=== PATIENT | female | born 1950 | race Caucasian/White ===

== ENCOUNTER → 2017-02-13 | Outpatient (CLI) | payer BC ==
[~2017-02-13] MED LIST: ASCAUNK PO; HYDUNK PO; MULTTAB58 PO; vit D PO
--- NOTE | 2017-02-13 12:09 | DIAGNOSTIC IMAGING REPORT ---
NUCLEAR GASTRIC EMPTYING STUDY HISTORY: Abdominal bloating. COMPARISON: None. TECHNIQUE: Following the oral administration of 1.1 mCi of technetium 99m sulfur colloid in egg sandwich and 8 ounces of water, static abdominal images are obtained anteriorly and posteriorly at 0 minutes, 1 hour, 2 hour, and 4 hour time intervals. Gastric emptying was calculated utilizing the geometric mean method. FINDINGS: There is approximately 72% activity remaining at the 1 hour time interval (normal is less than 90%), 46% remaining at the 2 hour time interval (normal is less than 60%), and 1% activity remaining at the 4 hour time interval (normal is less than 10%). IMPRESSION: No evidence for delayed gastric emptying. Electronically signed by: Anuel Sanchez M.D. 02/13/2017 12:07 PM Dictated Date/Time: 02/13/2017 12:07 PM
== END | disposition home or self-care (01) ==
LOC: C.NUCL 07:39
PROVIDERS: ATTEND Internal Medicine Gastroenterology
DX: R14.0 Abdominal distension (gaseous) (principal)

== ENCOUNTER 2025-03-18 11:10 | Observation (INO) ==
--- NOTE | 2025-03-18 11:21 | Emergency Department Note ---
Impression & Plan Acute metabolic encephalopathy due to hypoglycemia, Hypokalemia, Mediastinal mass, Frontal mass of brain ED Provider Note NAME: JOANNE PALACIOS AGE: 74 SEX: F : 1950 ARRIVES VIA: Ambulance INFORMANT: Patient, ED PROVIDER(S): Eran Luo MD CHIEF COMPLAINT: Weakness, diaphoresis, confusion MEDICAL DECISION MAKING: Patient presents due to concern for weakness. IV was established and blood work was obtained. Patient did have a screening CT of the head completed along with a chest x-ray. Patient's blood work was notable for a blood sugar in the 50s. Patient was ordered dextrose IV. Patient with a normal white count hemoglobin of 11.2 with a normal platelet count kidney function unremarkable blood sugar in the lab was noted to be 49. Patient's lactate of 1.[address] head did show concern for brain mass. This may have been similar to what had already been seen but no prior for comparison. Potassium 2.8. The patient was ordered K riders as the patient's magnesium was normal. Patient's repeat BSG was in the 150s. Upon reassessment the patient initially did have slow deliberate speech but this seems to be much improved. I did speak with Dr. Pruitt at [facility] neurosurgery with regard to the patient's brain mass. He did state that she did not require transfer based on her current symptoms and the associated hypoglycemia. The patient does not currently complain of any visual field deficits at this time. I did speak the on-call hospital service BRI Rogel under Dr. Garcia and the patient was admitted to the medicine service. Critical Care: I have personally spent 39 minutes of critical care time in direct management of this patient. This includes bedside care, interpretation of diagnostic studies, and testing, discussion with consultants, patient, and family members, and other require inpatient management activities. This 39 minutes is in excess of all separately billable procedures. Discussion w/ other healthcare providers: Dr. Pruitt neurosurgery [facility] BIR Nath and Dr. Garcia [facility] inpatient service Prior /Outside records reviewed: None Differential diagnosis: Infection, dehydration, metabolic abnormality, hypo/hyperglycemia, electrolyte imbalance, anemia, UTI, pneumonia, thyroid dysfunction among others were considered. Diagnostics, as interpreted by me: ECG: Normal sinus rhythm, rate of 73, normal intervals, normal axis no obvious ST elevations. Cardiac monitoring: An order was placed for continuous cardiac monitoring. The monitor shows a rate of 75 with sinus rhythm. Patient was placed on pulse oximetry Medical decision rules: None Imaging studies: I informally interpreted the patient's CT head that showed brain mass with formal report to follow. HPI: Patient presents due to concern for altered mental status. The patient reportedly was very diaphoretic and reportedly confused EMS arrived and the patient seem to be answering questions appropriately but was diaphoretic and had complained of some epigastric pain. Reportedly does have a history of a mediastinal mass. I did speak with the patient's family member who arrived later to provide some additional history and reported that the patient was noted to have a meningioma and a PET scan that was completed within the last month. The patient was to have a follow-up with neuro Optho today at [facility] but her symptoms preceded this and thus presented here for evaluation. Patient currently denies any head neck chest back or abdominal pain. Patient denies any numbness tingling or focal weakness. BSG per EMS prior to arrival was in the 130s. She reportedly does take insulin. No reported cough. PAST MEDICAL HISTORY: See Below PAST SURGICAL HISTORY: See Below SOCIAL HISTORY: See Below HOME MEDICATIONS: See Below ALLERGIES: See Below VITALS: See Below PHYSICAL EXAMINATION: GENERAL: NAD, non-toxic. EYE EXAM: Normal conjunctiva. PERRL, no anisocoria and EOM's grossly intact w/o pain. OROPHARYNX: Moist mucus membranes, grossly normal dentition. NECK: Trachea midline, no stridor. Patient denies any history of seizures and no tongue biting or cough. LUNGS: Clear to auscultation. Normal chest wall mechanics. HEART: NSR, no MRG. ABDOMEN: Abdomen soft, non-tender, no masses, no rebound or guarding. BACK: No CVA TTP. SKIN: No rashes and no bruising. UPPER EXTREMITIES: Upper extremities are grossly normal. LOWER EXTREMITIES: Grossly normal, no edema. NEURO EXAM: Awake and alert, follows commands, no obvious facial asymmetry, slow deliberate speech but no obvious dysarthria moves all 4 extremities. Good jyxkoo-tb-gist. Unable to keep both legs up off the bed for greater than 5 seconds. No obvious sensory deficits. Past Med/Surg History Problem List (Updated 03/18/25 @ 17:18 by BRI Marcus) Frontal mass of brain Iron deficiency anemia Hypoglycemia Mediastinal mass Acute hyperglycemia (Acute) Colitis (Acute) Weight loss (Acute) Diarrhea (Acute) Hypomagnesemia (Acute) Hypokalemia (Acute) Hypoxia (Acute) Encounter for pre-operative examination Factor VIII deficiency Encounter for pre-operative examination Medical History History of anesthesia reaction pt reports being told she has a small airway opening History of gastric polyp History of colon polyps x1 non cancerous Von Willebrands disease PER PT: BEFORE PROCEDURES REQUIRED TO TAKE A MED (NOT SURE DETAILS)/PT PLANS TO INQUIRE WITH GI DOC Sarcoidosis Diabetes Nausea and vomiting after administration of anesthetic agent Osteoarthritis Hypertension Sleep apnea cpap Asthma controlled/used rescue inhaler in the hot summer Surgical History History of esophagogastroduodenoscopy (EGD) History of total abdominal hysterectomy and bilateral salpingo-oophorectomy History of bunionectomy of left great toe History of bunionectomy of right great toe History of cholecystectomy History of appendectomy History of removal of cyst on abdomen History of colonoscopy History of wisdom tooth extraction History of tonsillectomy Family History Uncle Family history of diabetes mellitus Mother Family history of diabetes mellitus Sister Family history of diabetes mellitus Other Family history of esophageal cancer Social History Smoking Status: Never smoker Second Hand Exposure: Yes (parents smoked); Do You Dip or Chew Tobacco: No; Hx Alcohol Use: No Hx Substance Use: No Preferred Language: Qatari Communication Ability: Effective Surveyor'S Assistant Required: No Beliefs That Will Affect Care: None Current Living Situation: Alone Current Living Situation Comment: lives at home alone Other Information That Helps Us Care for You: No Feels Safe at Home: Yes Safety Concerns: Feels Safe At This Time Assistive Devices: None Allergies Allergies Allergy/AdvReac Type Severity Reaction Status Date / Time Penicillins Allergy Unknown rash Verified 12/16/24 14:30 Sulfa (Sulfonamide Allergy Unknown sulfa - Verified 12/16/24 14:30 Antibiotics) rash Home Meds Home Medications Medication Instructions Recorded Confirmed albuterol sulfate 90 mcg/actuation 2 puff inhalation Q4H PRN Wheezing 07/07/18 03/18/25 aerosol inhaler (Ventolin HFA) diclofenac sodium 1 % topical gel 2 g topical QID PRN arthritic pain 07/07/18 03/18/25 losartan 25 mg tablet 25 mg PO QAM 07/07/18 03/18/25 fluticasone propionate 110 2 puff inhalation BID 12/14/24 03/18/25 mcg/actuation HFA aerosol inhaler fluticasone propionate 50 2 spray intranasal DAILY 12/14/24 03/18/25 mcg/actuation nasal spray,suspension ferrous sulfate 325 mg (65 mg 325 mg PO UD 03/18/25 03/18/25 iron) tablet,delayed release potassium chloride 20 mEq 20 meq PO DAILY 03/18/25 03/18/25 tablet,extended release Previous Rx's Medication Instructions Recorded insulin glargine 100 unit/mL 40 unit (0.4 mL) SC DAILY #0 mL 03/19/25 subcutaneous solution (Lantus U-100 Insulin) Results & Data (ED) Vital Signs Vital Signs - 24 hr 03/18/25 11:17 Pulse Rate 78 Home Medications Current Medication List: was personally reviewed by me Laboratory Data Attestation: I reviewed the patient's lab results. 03/19/25 05:19 03/19/25 05:19 Lab Results 03/18/25 03/18/25 03/18/25 Range/Units 11:47 11:48 11:56 WBC 9.79 (4.8-10.8) K/ul RBC 4.35 (4.20-5.40) M/uL Hgb 11.2 L (12.0-16.0) g/dl POC Hgb 11.6 L (12.0-16.0) g/dl Hct 35.6 L (37.0-47.0) % POC Hct 34 L (37-47) % MCV 81.8 (80.0-100.0) fL MCH 25.7 (25.0-34.0) pg MCHC 31.5 L (32.0-36.0) g/dL RDW Std Deviation 50.8 H (36.4-46.3) fL RDW Coeff of Liss 17.0 H (11.5-14.5) % Plt Count 382 (130-400) K/uL MPV 8.8 L (9.4-12.4) fL Immature Gran % (Auto) 0.5 % Neut % (Auto) 63.6 % Lymph % (Auto) 25.0 % Giles % (Auto) 9.2 % Eos % (Auto) 0.9 % Baso % (Auto) 0.8 % Neut # (Auto) 6.22 (1.40-6.50) K/uL Lymph # (Auto) 2.45 (1.20-3.40) K/uL Giles # (Auto) 0.90 H (0.11-0.59) K/uL Eos # (Auto) 0.09 (0.00-0.50) K/uL Baso # (Auto) 0.08 (0.00-0.20) K/uL Immature Gran # (Auto) 0.05 (0.01-0.20) K/uL POC Sodium 142 (135-144) mmol/L Sodium 141 (136-145) mmol/L POC Potassium 2.7 L (3.3-5.0) mmol/L Potassium 2.8 L (3.5-5.1) mmol/L POC Chloride 105 (101-112) mmol/L Chloride 105 (98-107) mmol/L Carbon Dioxide 26 (21-32) mmol/L POC Total CO2 25 (24-31) mmol/L Anion Gap 10 (3-11) POC Anion Gap 16.0 (16-25) mmol/L POC BUN 18 (7-18) mg/dl BUN 20 (6-23) mg/dl Creatinine 0.43 L (0.6-1.2) mg/dl POC Creatinine 0.5 L (0.6-1.3) mg/dl Est Cr Clr Drug Dosing 133.5 ml/min eGFR 101.37 BUN/Creatinine Ratio 46.5 H (10-20) Glucose 49 L* (70-99(Fasting)) mg/dl POC Glucose 57 L* (70-99) mg/dl POC Glucose (other) 50 L* (70-99) mg/dl Lactate 1.9 (0.4-2.0) mmol/L Calcium 9.5 (8.6-10.3) mg/dl POC Ioniz Calcium Rosie 1.24 (1.12-1.32) mmol/l Magnesium 1.9 (1.7-2.4) mg/dl Total Bilirubin 0.4 (0.2-1.0) mg/dl AST 12 L (13-39) U/L ALT 10 (7-52) U/L Alkaline Phosphatase 78 (34-104) U/L Troponin I High Sens < 2.3 (0-14) pg/ml Total Protein 7.0 (6.0-8.3) gm/dl Albumin 4.1 (3.4-5.0) gm/dl Globulin 2.9 (2.5-4.0) gm/dl Albumin/Globulin Ratio 1.4 (0.9-2) Lipase 12 (11-82) U/L TSH 2.526 (0.300-4.500) uIu/ml 03/18/25 03/18/25 03/18/25 Range/Units 11:58 12:18 13:39 WBC (4.8-10.8) K/ul RBC (4.20-5.40) M/uL Hgb (12.0-16.0) g/dl POC Hgb (12.0-16.0) g/dl Hct (37.0-47.0) % POC Hct (37-47) % MCV (80.0-100.0) fL MCH (25.0-34.0) pg MCHC (32.0-36.0) g/dL RDW Std Deviation (36.4-46.3) fL RDW Coeff of Liss (11.5-14.5) % Plt Count (130-400) K/uL MPV (9.4-12.4) fL Immature Gran % (Auto) % Neut % (Auto) % Lymph % (Auto) % Giles % (Auto) % Eos % (Auto) % Baso % (Auto) % Neut # (Auto) (1.40-6.50) K/uL Lymph # (Auto) (1.20-3.40) K/uL Giles # (Auto) (0.11-0.59) K/uL Eos # (Auto) (0.00-0.50) K/uL Baso # (Auto) (0.00-0.20) K/uL Immature Gran # (Auto) (0.01-0.20) K/uL POC Sodium (135-144) mmol/L Sodium (136-145) mmol/L POC Potassium (3.3-5.0) mmol/L Potassium (3.5-5.1) mmol/L POC Chloride (101-112) mmol/L Chloride (98-107) mmol/L Carbon Dioxide (21-32) mmol/L POC Total CO2 (24-31) mmol/L Anion Gap (3-11) POC Anion Gap (16-25) mmol/L POC BUN (7-18) mg/dl BUN (6-23) mg/dl Creatinine (0.6-1.2) mg/dl POC Creatinine (0.6-1.3) mg/dl Est Cr Clr Drug Dosing ml/min eGFR BUN/Creatinine Ratio (10-20) Glucose (70-99(Fasting)) mg/dl POC Glucose 60 L* 157 H 95 (70-99) mg/dl POC Glucose (other) (70-99) mg/dl Lactate (0.4-2.0) mmol/L Calcium (8.6-10.3) mg/dl POC Ioniz Calcium Rosie (1.12-1.32) mmol/l Magnesium (1.7-2.4) mg/dl Total Bilirubin (0.2-1.0) mg/dl AST (13-39) U/L ALT (7-52) U/L Alkaline Phosphatase (34-104) U/L Troponin I High Sens (0-14) pg/ml Total Protein (6.0-8.3) gm/dl Albumin (3.4-5.0) gm/dl Globulin (2.5-4.0) gm/dl Albumin/Globulin Ratio (0.9-2) Lipase (11-82) U/L TSH (0.300-4.500) uIu/ml 03/18/25 Range/Units 14:30 WBC (4.8-10.8) K/ul RBC (4.20-5.40) M/uL Hgb (12.0-16.0) g/dl POC Hgb (12.0-16.0) g/dl Hct (37.0-47.0) % POC Hct (37-47) % MCV (80.0-100.0) fL MCH (25.0-34.0) pg MCHC (32.0-36.0) g/dL RDW Std Deviation (36.4-46.3) fL RDW Coeff of Liss (11.5-14.5) % Plt Count (130-400) K/uL MPV (9.4-12.4) fL Immature Gran % (Auto) % Neut % (Auto) % Lymph % (Auto) % Giles % (Auto) % Eos % (Auto) % Baso % (Auto) % Neut # (Auto) (1.40-6.50) K/uL Lymph # (Auto) (1.20-3.40) K/uL Giles # (Auto) (0.11-0.59) K/uL Eos # (Auto) (0.00-0.50) K/uL Baso # (Auto) (0.00-0.20) K/uL Immature Gran # (Auto) (0.01-0.20) K/uL POC Sodium (135-144) mmol/L Sodium (136-145) mmol/L POC Potassium (3.3-5.0) mmol/L Potassium (3.5-5.1) mmol/L POC Chloride (101-112) mmol/L Chloride (98-107) mmol/L Carbon Dioxide (21-32) mmol/L POC Total CO2 (24-31) mmol/L Anion Gap (3-11) POC Anion Gap (16-25) mmol/L POC BUN (7-18) mg/dl BUN (6-23) mg/dl Creatinine (0.6-1.2) mg/dl POC Creatinine (0.6-1.3) mg/dl Est Cr Clr Drug Dosing ml/min eGFR BUN/Creatinine Ratio (10-20) Glucose (70-99(Fasting)) mg/dl POC Glucose 113 H (70-99) mg/dl POC Glucose (other) (70-99) mg/dl Lactate (0.4-2.0) mmol/L Calcium (8.6-10.3) mg/dl POC Ioniz Calcium Rosie (1.12-1.32) mmol/l Magnesium (1.7-2.4) mg/dl Total Bilirubin (0.2-1.0) mg/dl AST (13-39) U/L ALT (7-52) U/L Alkaline Phosphatase (34-104) U/L Troponin I High Sens (0-14) pg/ml Total Protein (6.0-8.3) gm/dl Albumin (3.4-5.0) gm/dl Globulin (2.5-4.0) gm/dl Albumin/Globulin Ratio (0.9-2) Lipase (11-82) U/L TSH (0.300-4.500) uIu/ml Administered Medications Discontinued Medications Dextrose (Dextrose 50% 50 Ml Syringe) Confirm Administered Dose 50 ml IV .STK- MED ONE Stop: 03/18/25 11:57 Last Admin: 03/18/25 11:58 Dose: 50 ml Documented By: ISELA Dextrose (Dextrose 50% 50 Ml Syringe) 50 ml IV NOW ONE Stop: 03/18/25 11:59 Last Admin: 03/18/25 11:59 Dose: Not Given Documented By: ISELA Dextrose (Dextrose 50% 50 Ml Syringe) 50 ml IV NOW ONE Stop: 03/18/25 12:12 Last Admin: 03/18/25 13:26 Dose: Not Given Documented By: ISELA Enoxaparin Sodium (Enoxaparin Inj 40 Mg/0.4 Ml Syr) [address] Stop: 04/17/25 17:59 Last Admin: 03/18/25 17:49 Dose: Not Given Documented By: ASHKAN Ferrous Sulfate (Ferrous Sulfate 325 Mg Tab) 325 mg PO Q2D@0900 COURT Stop: 04/18/25 08:59 Last Admin: 03/19/25 08:11 Dose: 325 mg Documented By: ASHKAN Sodium Chloride (Nss) 1,000 mls @ 999 mls/hr IV .Q1H1M COURT Stop: 03/18/25 12:30 Last Admin: 03/18/25 12:33 Dose: Not Given Documented By: ISELA Sodium Chloride (Nss) 1,000 mls @ 999 mls/hr IV .Q1H1M ONE Stop: 03/18/25 12:31 Last Infusion: 03/18/25 13:26 Dose: Infused Documented By: Admin: 03/18/25 11:55 Dose: 999 mls/hr Documented By: ISELA Potassium Chloride (K Jez / Wtr) 10 meq in 100 mls @ 100 mls/hr IV Q1H COURT Stop: 03/18/25 15:59 Last Admin: 03/18/25 16:46 Dose: Not Given Documented By: Admin: 03/18/25 16:46 Dose: Not Given Documented By: ASHKAN Insulin Aspart (Insulin Aspart Per Unit Charge) [address] SC A[address]S [address] Stop: 04/17/25 20:59 Last Admin: 03/19/25 12:22 Dose: Not Given Documented By: Admin: 03/19/25 08:07 Dose: Not Given Documented By: Admin: 03/18/25 20:24 Dose: Not Given Documented By: DM Losartan Potassium (Losartan Potassium 25 Mg Tab) [address] Stop: 04/18/25 08:59 Last Admin: 03/19/25 08:11 Dose: 25 mg Documented By: ASHKAN Potassium Chloride (Potassium Chloride 20 Meq/15 Ml Udc) 40 meq PO NOW STA Stop: 03/18/25 13:49 Last Admin: 03/18/25 14:49 Dose: 40 meq Documented By: DOMINIC Potassium Chloride (Potassium Chloride Crtab 20 Meq Tabcr) [address] Stop: 04/18/25 08:59 Last Admin: 03/19/25 08:11 Dose: 20 meq Documented By: ASHKAN Imaging Data Radiologist's Impression: Head CT 03/18/25 11:18 CT SCAN OF THE BRAIN WITHOUT IV CONTRAST CLINICAL HISTORY: Change in mental status COMPARISON STUDY: No priors TECHNIQUE: Unenhanced axial CT scan of the brain is performed from the vertex to the skull base. Images are reviewed in the axial, sagittal, coronal planes. A dose lowering technique was utilized adhering to the principles of ALARA. CT DOSE: 627.25 mGy.cm FINDINGS: Brain parenchyma: There is an approximately 2.5 x 4 x 3 cm well-circumscribed hyperdense mass at the right anterior skull base in the suprasellar region. This likely encases vascular structures, and causes localized mass effect. There is no surrounding edema or midline shift. There is age-related involutional change noting minimal microangiopathic disease. There is no hemorrhage or evidence of acute territorial ischemia by CT criteria. Lizama-white matter differentiation is preserved. No extra-axial fluid collection is seen. Ventricles, sulci, cisterns: Prominent secondary to involutional change. Intracranial vasculature: There is atherosclerotic calcification of the cavernous carotid arteries. Calvarium: Unremarkable. Arthritic change is seen in the temporomandibular joints. Sinuses and mastoids: The visualized paranasal sinuses are clear. There is a small right mastoid effusion. The left mastoid air cells are well pneumatized. Orbits: The bony orbits are grossly intact. IMPRESSION: 1. There is no hemorrhage or evidence of acute territorial ischemia by CT criteria. 2. There is an approximately 2.5 x 4 x 3 cm well-circumscribed mass lesion at the anterior right skull base as above. The appearance favors a meningioma, and there is localized mass effect with no midline shift or edema. Correlation with a contrast-enhanced MRI of the brain is recommended for further evaluation. ACT 112: Negative or not required by law. Electronically signed by: Jesús Hunt M.D. 03/18/2025 12:43 PM Chest X-Ray 03/18/25 11:19 XR chest 1V portable CLINICAL HISTORY: weakness COMPARISON STUDY: 12/14/2024 FINDINGS: Large left upper mediastinal mass again seen. There is stable cardiomegaly with pulmonary vascular congestion. No consolidation or pleural effusion seen. No pneumothorax. IMPRESSION: 1. Mild CHF. 2. No acute pneumonia seen. 2. Grossly stable large left mediastinal mass. ACT 112: Negative or not required by law. Electronically signed by: Thierry Morales M.D. 03/18/2025 11:54 AM Discharge Plan Visit Data Chief Complaint: Altered Mental Status Stated Complaint: Diaphoretic, N/V, Poss stroke? ED Provider: Eran Luo Patient Disposition: Admitted As Inpatient Discharge Instructions Interventions: ED Discharge Assessment Last Done: 03/18/25 15:58 Prescriptions Prescriptions: Continued losartan 25 mg Tablet 25 mg PO QAM albuterol sulfate [Ventolin HFA] 90 mcg/actuation Hfa Aerosol Inhaler 2 puff INHALATION Q4H PRN (Reason: Wheezing) diclofenac sodium 1 % Gel 2 g TOPICAL QID PRN (Reason: arthritic pain) fluticasone propionate 50 mcg/actuation [place],Suspension 2 spray INTRANASAL DAILY Rx Instructions: administer into each nostril fluticasone propionate 110 mcg/actuation Hfa Aerosol Inhaler 2 puff INHALATION BID ferrous sulfate 325 mg (65 mg iron) tablet,delayed release (DR/EC) 325 mg PO UD Rx Instructions: every other day potassium chloride 20 mEq tablet extended release 20 meq PO DAILY Patient Comments: i don't take it every monring, every couple days Changed insulin glargine [Lantus U-100 Insulin] 100 unit/mL solution 40 unit SC DAILY Qty: 0 0RF
[2025-03-18] MEDS: SODIUM CHLORIDE 0.9% 1,000 ML IV ONE (11:55)
--- NOTE | 2025-03-18 11:56 | XRay Report ---
XR chest 1V portable CLINICAL HISTORY: weakness COMPARISON STUDY: 12/14/2024 FINDINGS: Large left upper mediastinal mass again seen. There is stable cardiomegaly with pulmonary v ascular congestion. No consolidation or pleural effusion seen. No pneumothorax. IMPRESSION: 1. Mild CHF. 2. No acute pneumonia seen. 2. Grossly stable large left mediastinal mass. ACT 112: Negative or not required by law. Electronically signed by: Thierry Morales M.D. 03/18/2025 11:54 AM
[2025-03-18] MEDS: DEXTROSE 50% 50 ML SYRINGE IV ONE ×3 (11:58→13:26)
[2025-03-18 12:12] LABS: Hematocrit (blood only) 35.6 % (37.0-47.0); Hemoglobin 11.2 g/dl (12.0-16.0); Immature Granulocytes # (auto) 0.05 K/uL (0.01-0.20); Immature Granulocytes % (auto) 0.5 %; Mean Corpuscular Hemoglobin 25.7 pg (25.0-34.0); Mean Corpuscular Volume 81.8 fL (80.0-100.0); Platelet Count 382 K/uL (130-400); RDW Standard Deviation 50.8 fL (36.4-46.3); Red Blood Count 4.35 M/uL (4.20-5.40); White Blood Count 9.79 K/ul (4.8-10.8)
[2025-03-18] MEDS: SODIUM CHLORIDE 0.9% 1,000 ML IV SCH (12:33)
[2025-03-18 12:44] LABS: Thyroid Stimulating Hormone 2.526 uIu/ml (0.300-4.500)
--- NOTE | 2025-03-18 12:44 | CT Scan Report ---
CT SCAN OF THE BRAIN WITHOUT IV CONTRAST CLINICAL HISTORY: Change in mental status COMPARISON STUDY: No priors TECHNIQUE: Unenhanced axial CT scan of the brain is performed from the vertex to the skull base. Imag es are reviewed in the axial, sagittal, coronal planes. A dose lowering technique was utilized adheri ng to the principles of ALARA. CT DOSE: 627.25 mGy.cm FINDINGS: Brain parenchyma: There is an approximately 2.5 x 4 x 3 cm well-circumscribed hyperdense mass at the right anterior skull base in the suprasellar region. This likely encases vascular structures, and cau ses localized mass effect. There is no surrounding edema or midline shift. There is age-related invol utional change noting minimal microangiopathic disease. There is no hemorrhage or evidence of acute t erritorial ischemia by CT criteria. Lizama-white matter differentiation is preserved. No extra-axial fl uid collection is seen. Ventricles, sulci, cisterns: Prominent secondary to involutional change. Intracranial vasculature: There is atherosclerotic calcification of the cavernous carotid arteries. Calvarium: Unremarkable. Arthritic change is seen in the temporomandibular joints. Sinuses and mastoids: The visualized paranasal sinuses are clear. There is a small right mastoid effu nancy. The left mastoid air cells are well pneumatized. Orbits: The bony orbits are grossly intact. IMPRESSION: 1. There is no hemorrhage or evidence of acute territorial ischemia by CT criteria. 2. There is an approximately 2.5 x 4 x 3 cm well-circumscribed mass lesion at the anterior right skul l base as above. The appearance favors a meningioma, and there is localized mass effect with no midli ne shift or edema. Correlation with a contrast-enhanced MRI of the brain is recommended for further e valuation. ACT 112: Negative or not required by law. Electronically signed by: Jesús Hunt M.D. 03/18/2025 12:43 PM
[2025-03-18 13:00] LABS: Alanine Aminotransferase 10 U/L (7-52); Albumin Globulin Ratio 1.4 (0.9-2); Albumin Level 4.1 gm/dl (3.4-5.0); Alkaline Phosphatase 78 U/L (34-104); Anion Gap 10 (3-11); Bilirubin,Total 0.4 mg/dl (0.2-1.0); Blood Urea Nitrogen 20 mg/dl (6-23); Calcium 9.5 mg/dl (8.6-10.3); Carbon Dioxide 26 mmol/L (21-32); Chloride 105 mmol/L (98-107); Creatinine Clr Calc Pharmacy 133.5 ml/min; Globulin 2.9 gm/dl (2.5-4.0); Lipase 12 U/L (11-82); Magnesium 1.9 mg/dl (1.7-2.4); Potassium 2.8 mmol/L (3.5-5.1); Sodium 141 mmol/L (136-145); Total Protein 7.0 gm/dl (6.0-8.3)
[2025-03-18 13:05] LABS: Glucose 49 mg/dl (70-99(Fasting))
--- NOTE | 2025-03-18 13:34 | History & Physical Report ---
Date of Service March 18, 2025 Assessment & Plan (1) Hypoglycemia: (2) Diabetes: (3) Hypokalemia: (4) Mediastinal mass: (5) Frontal mass of brain: (6) Iron deficiency anemia: Plan 74 year old female with PMH significant for POLI on CPAP, hypertension, mediastinal mass and frontal mass of brain, osteoarthritis, and factor VIII deficiency who presents to the ED on 03/18/2025 with hypoglycemia. Hypoglycemia Type 2 diabetes A1C 9.5 in December 2024 - recheck in am Follows with [facility] for insulin dosing Taking 50 units lantus daily at home since 01/20/2025 Patient presenting with hypoglycemia 49 responsive to D50 BSG q1hr x4 hours - stable - switch to [facility] Hold lantus for now SSI while inpatient May need lantus dose decreased at discharge Hypokalemia Likely secondary to insulin K 2.8 and received total of 60meq Recheck BMP in am Mediastinal mass Frontal mass of brain Previously admitted in November for diarrhea and incidentally found to have an anterior mediastinal mass Evaluated by Dr. Wrad of Thoracic Surgery in [place] who ordered a PET/CT revealing a brain mass Underwent MRI brain and was evaluated by Dr. Pruitt of Neurosurgery at [place] with working diagnosis clinoidal meningioma Plans to see neuro-ophthalmology (appt today 03/18/2025) and Neurosurgery Dr. 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 PCP: Gearld Perla Disposition: admit to PCU Patient seen in collaboration with Dr Garcia. Please see addendum. I spent a total of 75 minutes coordinating, documenting and providing care for this patient excluding time spent in the performance of separately billed servic es or time spent by another provider/QHP. Admission and Anticipated Discharge Date Admission Date: 03/18/2025 History of Present Illness Chief Complaint: diaphoresis and dizziness Primary Care Provider: Gerald Perla MD 74 year old female with PMH significant for POLI on CPAP, hypertension, mediastinal mass and frontal mass of brain, and osteoarthritis who presents to the ED on 03/18/2025 with acute onset of diaphoresis and dizziness this morning. Patient reports she woke up this morning in usual health and did her morning routine which consists of checking her blood sugar and taking lantus. Her blood sugar was 135 around 0900 and she reports her baseline blood sugar has been around 120 recently. She took 50 units of lantus, which is a dose she has been on for weeks as prescribed by [facility] pharmacists. She ate toast for breakfast, which is less than what she usually eats, because she had an appointment in [place] today and didn't want to have to go to the bathroom. About 30 minutes after taking insulin and eating breakfast, she started to feel a hot flash which progressed to diaphoresis, dizziness, near syncope feeling, and a visual disturbance of seeing blue. She thought she was having a heart attack. Fortunately, her son in law was on his way over to take her to the appointment and they called EMS. Patient was seen in her ED room, and reports she is feeling back to normal and wants to go home. She denies current headache, dizziness, chest pain, SOB, abdominal pain, N/V/D, as well as any fevers or chills prior to the episode this morning. Allergies Allergy/AdvReac Type Severity Reaction Status Date / Time Penicillins Allergy Unknown rash Verified 12/16/24 14:30 Sulfa (Sulfonamide Allergy Unknown sulfa - Verified 12/16/24 14:30 Antibiotics) rash Home Medications Medication Instructions Recorded Confirmed Type albuterol sulfate 90 mcg/actuation 2 puff inhalation Q4H PRN Wheezing 07/07/18 03/18/25 History aerosol inhaler (Ventolin HFA) diclofenac sodium 1 % topical gel 2 g topical QID PRN arthritic pain 07/07/18 03/18/25 History losartan 25 mg tablet 25 mg PO QAM 07/07/18 03/18/25 History fluticasone propionate 110 2 puff inhalation BID 12/14/24 03/18/25 History mcg/actuation HFA aerosol inhaler fluticasone propionate 50 2 spray intranasal DAILY 12/14/24 03/18/25 History mcg/actuation nasal spray,suspension ferrous sulfate 325 mg (65 mg 325 mg PO UD 03/18/25 03/18/25 History iron) tablet,delayed release insulin glargine 100 unit/mL 50 unit SC DAILY 03/18/25 03/18/25 History subcutaneous solution (Lantus U-100 Insulin) potassium chloride 20 mEq 20 meq PO DAILY 03/18/25 03/18/25 History tablet,extended release Past Med/Surg History Problem List (Updated 03/18/25 @ 17:18 by BRI Marcus) Frontal mass of brain Iron deficiency anemia Hypoglycemia Mediastinal mass Acute hyperglycemia (Acute) Colitis (Acute) Weight loss (Acute) Diarrhea (Acute) Hypomagnesemia (Acute) Hypokalemia (Acute) Hypoxia (Acute) Encounter for pre-operative examination Factor VIII deficiency Encounter for pre-operative examination Medical History History of anesthesia reaction pt reports being told she has a small airway opening History of gastric polyp History of colon polyps x1 non cancerous Von Willebrands disease PER PT: BEFORE PROCEDURES REQUIRED TO TAKE A MED (NOT SURE DETAILS)/PT PLANS TO INQUIRE WITH GI DOC Sarcoidosis Diabetes Nausea and vomiting after administration of anesthetic agent Osteoarthritis Hypertension Sleep apnea cpap Asthma controlled/used rescue inhaler in the hot summer Surgical History History of esophagogastroduodenoscopy (EGD) History of total abdominal hysterectomy and bilateral salpingo-oophorectomy History of bunionectomy of left great toe History of bunionectomy of right great toe History of cholecystectomy History of appendectomy History of removal of cyst on abdomen History of colonoscopy History of wisdom tooth extraction History of tonsillectomy Family History Uncle Family history of diabetes mellitus Mother Family history of diabetes mellitus Sister Family history of diabetes mellitus Other Family history of esophageal cancer Social History Smoking Status: Never smoker Second Hand Exposure: Yes (parents smoked); Do You Dip or Chew Tobacco: No; Hx Alcohol Use: No Hx Substance Use: No Preferred Language: Kazakh Communication Ability: Effective Residential Counselor Required: No Beliefs That Will Affect Care: None Current Living Situation: Alone Current Living Situation Comment: lives at home alone Other Information That Helps Us Care for You: No Feels Safe at Home: Yes Safety Concerns: Feels Safe At This Time Assistive Devices: Contacts Review of Systems Review of Systems: All systems reviewed & are unremarkable except as noted in HPI & below Physical Exam Physical Exam: Refer to exam by Dr Garcia Results & Data Results & Data Vital Signs (Past 12 Hours) Vital Signs Temp Pulse Pulse Resp BP BP Pulse Ox 03/18/25 13:08 76 16 131/73 96 03/18/25 12:32 66 16 128/74 98 03/18/25 12:11 68 20 128/62 98 03/18/25 11:45 68 16 135/67 95 03/18/25 11:35 34.1 C L 03/18/25 11:32 34.1 C L 03/18/25 11:17 78 03/18/25 11:10 03/18/25 11:10 84 20 155/81 H 94 O2 Del Method 03/18/25 13:08 Room Air 03/18/25 12:32 Room Air 03/18/25 12:11 Room Air 03/18/25 11:45 Room Air 03/18/25 11:35 03/18/25 11:32 03/18/25 11:17 03/18/25 11:10 Room Air 03/18/25 11:10 Room Air, Ambu-Bag Laboratory Results Short CBC 03/18/25 Range/Units 11:48 WBC 9.79 (4.8-10.8) K/ul Hgb 11.2 L (12.0-16.0) g/dl Hct 35.6 L (37.0-47.0) % Plt Count 382 (130-400) K/uL BMP 03/18/25 11:48 Sodium 141 Potassium 2.8 L Chloride 105 Carbon Dioxide 26 BUN 20 Creatinine 0.43 L Glucose 49 L* Calcium 9.5 Liver Function 03/18/25 Range/Units 11:48 Total Bilirubin 0.4 (0.2-1.0) mg/dl AST 12 L (13-39) U/L ALT 10 (7-52) U/L Alkaline Phosphatase 78 (34-104) U/L Albumin 4.1 (3.4-5.0) gm/dl I have independently reviewed and interpreted patient's admitting labs including CBC, CMP, mag, troponin, lactate, TSH Diagnostic Findings Head CT 03/18/25 11:18 CT SCAN OF THE BRAIN WITHOUT IV CONTRAST CLINICAL HISTORY: Change in mental status COMPARISON STUDY: No priors TECHNIQUE: Unenhanced axial CT scan of the brain is performed from the vertex to the skull base. Images are reviewed in the axial, sagittal, coronal planes. A dose lowering technique was utilized adhering to the principles of ALARA. CT DOSE: 627.25 mGy.cm FINDINGS: Brain parenchyma: There is an approximately 2.5 x 4 x 3 cm well-circumscribed hyperdense mass at the right anterior skull base in the suprasellar region. This likely encases vascular structures, and causes localized mass effect. There is no surrounding edema or midline shift. There is age-related involutional change noting minimal microangiopathic disease. There is no hemorrhage or evidence of acute territorial ischemia by CT criteria. Lizama-white matter differentiation is preserved. No extra-axial fluid collection is seen. Ventricles, sulci, cisterns: Prominent secondary to involutional change. Intracranial vasculature: There is atherosclerotic calcification of the cavernous carotid arteries. Calvarium: Unremarkable. Arthritic change is seen in the temporomandibular joints. Sinuses and mastoids: The visualized paranasal sinuses are clear. There is a small right mastoid effusion. The left mastoid air cells are well pneumatized. Orbits: The bony orbits are grossly intact. IMPRESSION: 1. There is no hemorrhage or evidence of acute territorial ischemia by CT criteria. 2. There is an approximately 2.5 x 4 x 3 cm well-circumscribed mass lesion at the anterior right skull base as above. The appearance favors a meningioma, and there is localized mass effect with no midline shift or edema. Correlation with a contrast-enhanced MRI of the brain is recommended for further evaluation. ACT 112: Negative or not required by law. Electronically signed by: Jesús Hunt M.D. 03/18/2025 12:43 PM Chest X-Ray 03/18/25 11:19 XR chest 1V portable CLINICAL HISTORY: weakness COMPARISON STUDY: 12/14/2024 FINDINGS: Large left upper mediastinal mass again seen. There is stable cardiomegaly with pulmonary vascular congestion. No consolidation or pleural effusion seen. No pneumothorax. IMPRESSION: 1. Mild CHF. 2. No acute pneumonia seen. 2. Grossly stable large left mediastinal mass. ACT 112: Negative or not required by law. Electronically signed by: Thierry Morales M.D. 03/18/2025 11:54 AM Code Status & VTE Plan Code Status Full Code Supervising Physician Co-Signing Physician Notes Patient brought in for hypoglycemia Reported no issues on waking up this AM. BG at home was 135 around 9am. She ate a bit of toast and took her lantus 50U She stated she has been on 50U for some weeks from 35U Son in law at bedside stated she did not eat much breakfast as they had doctor's appt today She developed diaphoresis, dizziness and feeling unwell On presentation to ER via EMS, she was noted to be hypoglycemic and hypothermic Got Dextrose IV Currently all symptoms are resolved and no complaints on ROS On exam, General: Not in distress Eyes: PERRL, conjunctivae normal, not pale, anicteric sclerae, EOM intact bilaterally ENMT: External ear and nose normal, oropharynx normal Respiratory: Not in resp distress, on Room air, CTA b/l Cardiovascular: RRR S1 S2 Gastrointestinal (Abdomen): Abdomen is not distended, soft, non-tender to palpation, normal bowel sounds Musculoskeletal: No pedal edema Neurologic: Alert and oriented x 3, No focal weakness/deficit Psychiatric: Normal mood and affect Lab notable for Hb of 11.2, K of 2.8, glucose of [address] noted [id number] mass lesion on anterior skull likely meningioma (known to patient) CXR noted mild CHF and grossly stable large left mediastinal mass (known to patient) Hypoglycemia Likely related to insulin and not eating much breakfast Get hbA1c Check accucheck q1h for now until BG is consistently stable or rising Hold insulin for now Order diet Once stabilized, will need reduction in home lantus dose. Patient follows with [facility]. Replete hypokalemia and monitor Other plans as detailed by Yue GREGORY
[2025-03-18] MEDS: POTASSIUM CHLORIDE 20 MEQ/15 ML UDC PO STA (14:49)
[2025-03-18 15:22] LABS: Appearance Urine Clear (Clear); Bacteria Urine Automated None Seen (None Seen); Glucose Urine UA Negative (Negative); RBC Urine Automated 0-2 /hpf (0-2)
[2025-03-18] MEDS ORDERED: ALUMINUM/MAGNESIUM SUSP 30 ML UDC PO PRN (16:22)
[2025-03-18] MEDS ORDERED: ONDANSETRON INJ 2 MG/ML 2 ML VIAL IV PRN (16:22)
[2025-03-18] MEDS ORDERED: POLYETHYLENE (MIRALAX) 17 GM PACK PO PRN (16:22)
[2025-03-18] MEDS ORDERED: ACETAMINOPHEN 325 MG TAB PO PRN (16:22)
[2025-03-18] MEDS: POTASSIUM CHLORIDE / WTR 10 MEQ/100 ML PLCT IV SCH (16:46)
[2025-03-18] MEDS ORDERED: GLUCAGON FOR INJ 1 MG VIAL SQ PRN (17:23)
[2025-03-18] MEDS ORDERED: GLUCOSE 40% GEL 15 GM TUBE PO PRN (17:23)
[2025-03-18] MEDS ORDERED: DEXTROSE 50% 50 ML SYRINGE IV PRN (17:23)
[2025-03-18] MEDS ORDERED: GLUCOSE 10 TAB/TUBE PO PRN (17:23)
[2025-03-18] MEDS ORDERED: CARBOHYDRATES FOR HYPOGLYCEMIA PO PRN (17:23)
[2025-03-18] MEDS: ENOXAPARIN INJ 40 MG/0.4 ML SYR SQ SCH (17:49)
[2025-03-18] MEDS: INSULIN ASPART PER UNIT CHARGE SC SCH (20:24)
[2025-03-19 06:14] LABS: Hematocrit (blood only) 32.6 % (37.0-47.0); Hemoglobin 10.6 g/dl (12.0-16.0); Mean Corpuscular Hemoglobin 26.5 pg (25.0-34.0); Mean Corpuscular Volume 81.5 fL (80.0-100.0); Platelet Count 307 K/uL (130-400); RDW Standard Deviation 50.4 fL (36.4-46.3); Red Blood Count 4.00 M/uL (4.20-5.40); White Blood Count 7.86 K/ul (4.8-10.8)
[2025-03-19 06:34] LABS: Anion Gap 6.0 (3-11); Blood Urea Nitrogen 14.0 mg/dl (6-23); Calcium 9.4 mg/dl (8.6-10.3); Carbon Dioxide 28.0 mmol/L (21-32); Chloride 106.0 mmol/L (98-107); Creatinine Clr Calc Pharmacy 107.9 ml/min; Glucose 109.0 mg/dl (70-99(Fasting)); Magnesium 2.0 mg/dl (1.7-2.4); Potassium 3.9 mmol/L (3.5-5.1); Sodium 140.0 mmol/L (136-145)
[2025-03-19 07:58] LABS: Hemoglobin A1C 6.5 % (4.5-5.6)
[2025-03-19 08:00] VITALS: RESP 18
[2025-03-19] MEDS: POTASSIUM CHLORIDE CRTAB 20 MEQ TABCR PO SCH (08:11)
[2025-03-19] MEDS: FERROUS SULFATE 325 MG TAB PO SCH (08:11)
[2025-03-19] MEDS: LOSARTAN POTASSIUM 25 MG TAB PO SCH (08:11)
[2025-03-19 11:46] VITALS: BP 129/79; PULSE 80; TEMP 97.9; O2SAT 96
--- NOTE | 2025-03-19 13:33 | Discharge Summary ---
Date of Service March 19, 2025 Admission HPI Per Admitting Provider 74 year old female with PMH significant for POLI on CPAP, hypertension, mediastinal mass and frontal mass of brain, and osteoarthritis who presents to the ED on 03/18/2025 with acute onset of diaphoresis and dizziness this morning. Patient reports she woke up this morning in usual health and did her morning routine which consists of checking her blood sugar and taking lantus. Her blood sugar was 135 around 0900 and she reports her baseline blood sugar has been around 120 recently. She took 50 units of lantus, which is a dose she has been on for weeks as prescribed by [facility] pharmacists. She ate toast for b reakfast, which is less than what she usually eats, because she had an appointment in [place] today and didn't want to have to go to the bathroom. About 30 minutes after taking insulin and eating breakfast, she started to feel a hot flash which progressed to diaphoresis, dizziness, near syncope feeling, and a visual disturbance of seeing blue. She thought she was having a heart attack. Fortunately, her son in law was on his way over to take her to the appointment and they called EMS. Patient was seen in her ED room, and reports she is feeling back to normal and wants to go home. She denies current headache, dizziness, chest pain, SOB, abdominal pain, N/V/D, as well as any fevers or chills prior to the episode this morning. Admission Exam Per Admitting Provider General: Not in distress Eyes: PERRL, conjunctivae normal, not pale, anicteric sclerae, EOM intact bilaterally ENMT: External ear and nose normal, oropharynx normal Respiratory: Not in resp distress, on Room air, CTA b/l Cardiovascular: RRR S1 S2 Gastrointestinal (Abdomen): Abdomen is not distended, soft, non-tender to palpation, normal bowel sounds Musculoskeletal: No pedal edema Neurologic: Alert and oriented x 3, No focal weakness/deficit Psychiatric: Normal mood and affect Principal Diagnosis Hypoglycemia, in the setting of insulin use and known diabetes Discharge Exam General: WD/WN F in NAD Eyes: PERRL, EOM intact bilaterally ENMT: External ear and nose normal Respiratory: Not in resp distress, on Room air, CTA b/l Cardiovascular: RRR S1 S2 Gastrointestinal (Abdomen): Abdomen is not distended, soft, non-tender to p alpation, normal bowel sounds Musculoskeletal: No pedal edema, moves extremities Neurologic: Alert and oriented x 3, No focal weakness/deficit Psychiatric: Normal mood and affect Discharge Data Allergies Allergy/AdvReac Type Severity Reaction Status Date / Time Penicillins Allergy Unknown rash Verified 12/16/24 14:30 Sulfa (Sulfonamide Allergy Unknown sulfa - Verified 12/16/24 14:30 Antibiotics) rash Consultations 03/18/25 13:05 ED Decision to Admit Stat Ordered Studies 03/18/25 11:18 CT head/brain wo con Stat FINDINGS: Brain parenchyma: There is an approximately 2.5 x 4 x 3 cm well-circumscribed hyperdense mass at the right anterior skull base in the suprasellar region. This likely encases vascular structures, and causes localized mass effect. There is no surrounding edema or midline shift. There is age-related involutional change noting minimal microangiopathic disease. There is no hemorrhage or evidence of acute territorial ischemia by CT criteria. Lizama-white matter differentiation is preserved. No extra-axial fluid collection is seen. Ventricles, sulci, cisterns: Prominent secondary to involutional change. Intracranial vasculature: There is atherosclerotic calcification of the cavernous carotid arteries. Calvarium: Unremarkable. Arthritic change is seen in the temporomandibular joints. Sinuses and mastoids: The visualized paranasal sinuses are clear. There is a small right mastoid effusion. The left mastoid air cells are well pneumatized. Orbits: The bony orbits are grossly intact. IMPRESSION: 1. There is no hemorrhage or evidence of acute territorial ischemia by CT criteria. 2. There is an approximately 2.5 x 4 x 3 cm well-circumscribed mass lesion at the anterior right skull base as above. The appearance favors a meningioma, and there is localized mass effect with no midline shift or edema. Correlation with a contrast-enhanced MRI of the brain is recommended for further evaluation. Hospital Course (1) Hypoglycemia: (2) Diabetes: (3) Hypokalemia: (4) Mediastinal mass: (5) Frontal mass of brain: (6) Iron deficiency anemia: Plan 74 year old female with PMH significant for POLI on CPAP, hypertension, mediastinal mass and frontal mass of brain, osteoarthritis, and factor VIII deficiency who presents to the ED on 03/18/2025 with hypoglycemia. Hypoglycemia Type 2 diabetes A1C 9.5 in December 2024 -> current A1c 6.5% Follows with [facility] for insulin dosing Taking 50 units lantus daily at home since 01/20/2025 Patient presenting with hypoglycemia 49 responsive to D50 BSG q1hr x4 hours - stable - switch to [facility] Held lantus for now SSI while inpatient Discussed w/ personal development educator - will decrease lantus to 40 units daily. Pt also now has dexcom to monitor her blood glucose levels. Hypokalemia Likely secondary to insulin K 2.8 and received total of 60meq K now normalized Mediastinal mass Frontal mass of brain Previously admitted in November for diarrhea and incidentally found to have an anterior mediastinal mass Evaluated by Dr. Ward of Thoracic Surgery in [place] who ordered a PET/CT revealing a brain mass Underwent MRI brain and was evaluated by Dr. Pruitt of Neurosurgery at [place] with working diagnosis clinoidal meningioma Plans to see neuro-ophthalmology (appt was supposed to be on 03/18/2025) and Neurosurgery Dr. 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, a rare benign entity Awaiting above appointments before deciding to proceed with surveillance vs surgery with Thoracic Surgery Appt with Heme Onc scheduled for October 2025 Iron deficiency anemia Continue ferrous sulfate PCP: Gerald Perla Total Time Total Time Spent Total Time Spent (In Minutes): 40 Discharge Plan Discharge Items Patient Disposition: Home - Self-Care Reason For Visit: HYPOGLYCEMIA Discharge Diagnosis: Hypoglycemia, in the setting of insulin use and known diabetes Activity: Per Instructions section Non-emergency contact: Primary Care Provider Call non-emergency contact if: you have any medication questions and your symptoms worsen Follow-up/Referrals: Gerald Perla MD [Primary Care Provider] - Diet: Carb Consistent or DM2 Addtl Attending Provider Instructions: Follow up with your primary care physician within 1 week. Decrease your insulin dose to 40 units daily. Monitor your blood glucose levels as discussed with personal development educator. Pending Studies at Discharge: Yes Studies:: urine, blood cultx results Stand-Alone Forms: My MRI Interventions, Smoking Cessation Medications and DC Order Prescriptions: Continued losartan 25 mg Tablet 25 mg PO QAM albuterol sulfate [Ventolin HFA] 90 mcg/actuation Hfa Aerosol Inhaler 2 puff INHALATION Q4H PRN (Reason: Wheezing) diclofenac sodium 1 % Gel 2 g TOPICAL QID PRN (Reason: arthritic pain) fluticasone propionate 50 mcg/actuation [place],Suspension 2 spray INTRANASAL DAILY Rx Instructions: administer into each nostril fluticasone propionate 110 mcg/actuation Hfa Aerosol Inhaler 2 puff INHALATION BID ferrous sulfate 325 mg (65 mg iron) tablet,delayed release (DR/EC) 325 mg PO UD Rx Instructions: every other day potassium chloride 20 mEq tablet extended release 20 meq PO DAILY Patient Comments: i don't take it every monring, every couple days Changed insulin glargine [Lantus U-100 Insulin] 100 unit/mL solution 40 unit SC DAILY Qty: 0 0RF Discharge Orders: Discharge Order (Routine); Ordered 03/19/25 Ordered By: Breezy Hernadez Admission Data Admit Date/Time: 03/18/25 14:39 Attending Provider: Breezy Hernadez Admit Provider: Pau Garcia I. Primary Care Provider: Gerald Perla Other Providers: Pau Garcia I.
== END 2025-03-19 14:30 | disposition home or self-care (01) ==
LOC: ED 11:10 → 2S 11:10 → SUATTDRO 14:39 → 2S 15:58